=== PATIENT | female | born 1990 | race African-American/Black ===

== ENCOUNTER 2018-12-02 22:13 | Emergency (ER) | payer OTHER ==
[2018-12-02 22:27] VITALS: BP 100/80; PULSE 88; TEMP 98.2; BMI 30.2
--- NOTE | 2018-12-03 00:10 | PDOC ---
History of Present Illness - General Chief Complaint: Pain, Acute Stated Complaint: PELVIC PAIN Time Seen by Provider: 12/02/18 22:43 History Source: Patient Exam Limitations: No Limitations - History of Present Illness Travel History: No Initial Comments: 12/03/18 00:09 Best Contact: PCP:[facility] Pmhx:Asthma/No history of intubation and admissions Pshx:0 Allergies: NKDA FH:0 Social Hx: Cigarettes/ 0 Alcohol/ 0 Drugs/0 28-year-old female presents to the emergency department complaining of pelvic pain 3 days Past History - Past Medical History Allergies/Adverse Reactions: Allergies Allergy/AdvReac Type Severity Reaction Status Date / Time No Known Allergies Allergy Verified 12/03/18 02:50 Home Medications: Ambulatory Orders Albuterol Sulfate Inhaler - [Ventolin Hfa Inhaler -] 1 - 2 inh PO QID PRN Asthma: Yes - Immunization History Immunization Up to Date: Yes - Suicide/Smoking/Psychosocial Hx Smoking History: Current some day smoker Have you smoked in the past 12 months: Yes Number of Cigarettes Smoked Daily: 6 Information on smoking cessation initiated: No Hx Alcohol Use: Yes (Social) Drug/Substance Use Hx: No Substance Use Type: Alcohol Review of Systems - Review of Systems Able to Perform ROS?: Yes Comments:: 12/03/18 00:08 CONSTITUTIONAL: Absent: fever, chills, diaphoresis, generalized weakness, malaise, loss of appetite HEENT: Absent: rhinorrhea, nasal congestion, throat pain, throat swelling, difficulty swallowing, mouth swelling, ear pain, eye pain, visual Changes CARDIOVASCULAR: Absent: chest pain, loss of consciousness, palpitations, irregular heart rate, peripheral edema RESPIRATORY: Absent: cough, shortness of breath, dyspnea with exertion, orthopnea, wheezing, stridor, hemoptysis GASTROINTESTINAL: Absent: abdominal pain, abdominal distension, nausea, vomiting, diarrhea, constipation, melena, hematochezia GENITOURINARY: +Left sided pelvic pain Absent: dysuria, frequency, urgency, hesitancy, hematuria, flank pain, genital pain MUSCULOSKELETAL: Absent: myalgia, arthralgia, joint swelling SKIN: Absent: rash, itching, pallor HEMATOLOGIC/IMMUNOLOGIC: Absent: easy bleeding, easy bruising, lymphadenopathy, frequent infections ENDOCRINE: Absent: unexplained weight gain, unexplained weight loss, heat intolerance, cold intolerance NEUROLOGIC: Absent: headache, focal weakness or paresthesias, dizziness, unsteady gait, seizure, mental status changes, bladder or bowel incontinence PSYCHIATRIC: Absent: anxiety, depression, suicidal or homicidal ideation, hallucinations. 12/03/18 00:09 12/03/18 00:42 Is the patient limited Luxembourgish proficient: No *Physical Exam - Vital Signs Last Vital Signs Temp Pulse Resp BP Pulse Ox 98.2 F 88 20 100/80 100 12/02/18 22:22 12/02/18 22:22 12/02/18 22:22 12/02/18 22:22 12/02/18 22:22 - Physical Exam Comments: 12/03/18 00:08 GENERAL: Well developed, well nourished. Awake and alert. No acute distress. HEENT: Normocephalic, atraumatic. PERRLA, EOMI. No conjunctival pallor. Sclera are non- icteric. Moist mucous membranes. Oropharynx is clear. NECK: Supple. Full ROM. No JVD. Carotid pulses 2+ and symmetric, without bruits. No thyromegaly. No lymphadenopathy. CARDIOVASCULAR: Regular rate and rhythm. No murmurs, rubs, or gallops. Distal pulses are 2+ and symmetric. PULMONARY: No evidence of respiratory distress. Lungs clear to auscultation bilaterally. No wheezing, rales or rhonchi. ABDOMINAL: Soft. Non-tender. Non-distended. No rebound or guarding. No organomegaly. Normoactive bowel sounds. MUSCULOSKELETAL Normal range of motion at all joints. No bony deformities or tenderness. No CVA tenderness. EXTREMITIES: No cyanosis. No clubbing. No edema. No calf tenderness. SKIN: Warm and dry. Normal capillary refill. No rashes. No jaundice. NEUROLOGICAL: Alert, awake, appropriate. Cranial nerves 2-12 intact. No deficits to light touch and temperature in face, upper extremities and lower extremities. No motor deficits in the in face, upper extremities and lower extremities. Normoreflexic in the upper and lower extremities. Normal speech. Toes are down- going bilaterally. Gait is normal without ataxia. PSYCHIATRIC: Cooperative. Good eye contact. Appropriate mood and affect. Pelvic: External genitalia normal without lesions. Vaginal vault is clear without blood or discharge. Cervix is long and closed. No cervical motion tenderness. Uterus is nontender and normal in size. Adnexa are nontender and without masses. Moderate Sedation - Procedure Monitoring Vital Signs: Procedure Monitoring Vital Signs Temperature 98.2 F 12/02/18 22:22 Pulse Rate 88 12/02/18 22:22 Respiratory Rate 20 12/02/18 22:22 Blood Pressure 100/80 12/02/18 22:22 O2 Sat by Pulse Oximetry (%) 100 12/02/18 22:22 ED Treatment Course - LABORATORY CBC & Chemistry Diagram: 12/03/18 01:50 12/03/18 02:00 - RADIOLOGY Radiology Studies Ordered: Category Date Time Status TRANSVAGINAL ULTRASOUND US [US] Stat Ultrasound 12/02/18 23:22 Taken Radiograph Interpretation: 12/03/18 04:46 CAT scan abdomen and pelvis: Complex peritoneum fluids suggests possible hemoperitoneum. Related to a ruptured hemorrhagic ovarian cyst. *DC/Admit/Observation/Transfer Diagnosis at time of Disposition: Ovarian cyst, left - Discharge Dispostion Condition at time of disposition: Stable Decision to Admit order: No - Referrals Referrals: Delfino Malcolm MD [Staff Physician] - - Patient Instructions Printed Discharge Instructions: DI for Ovarian Cyst, DI for Pelvic Pain Additional Instructions: Follow-up with the board worker this week Increase fluids Tylenol alternating with Motrin for pain Return back to the ER for severe/persistent or worsening symptoms - Post Discharge Activity
[2018-12-03 00:54] LABS: URINE APPEARANCE SLCLOUDY; URINE BILIRUBIN NEGATIVE (<2.0 mg/dL); URINE COLOR YELLOW; URINE GLUCOSE (UA) NEGATIVE (NEGATIVE); URINE KETONE NEGATIVE (NEGATIVE); URINE LEUK ESTERASE NEGATIVE (NEGATIVE); URINE NITRITE NEGATIVE (NEGATIVE); URINE PROTEIN NEGATIVE (NEGATIVE); URINE UROBILINOGEN NEGATIVE mg/dL (0.2-1.0)
[2018-12-03 00:56] LABS: HCG,QUALITATIVE URINE Negative
[2018-12-03] MEDS ORDERED: KETOROLAC TROMETHAMINE 60 MG/2 ML VIAL IM ONE (01:05)
[2018-12-03 02:04] LABS: BASO % 0.7 % (0-2.0); EOS % 0.5 % (0-4.5); HEMATOCRIT 37.2 % (32.4-45.2); HEMOGLOBIN 12.7 GM/dL (10.7-15.3); LYMPH % 18.1 % (8-40); MCH 29.8 pg (25.7-33.7); MCHC 34.1 g/dl (32.0-36.0); MEAN CELL VOLUME 87.4 fl (80-96); MEAN PLT VOLUME 8.6 fl (7.5-11.1); MONO % 6.8 % (3.8-10.2); NEUT % 73.9 % (42.8-82.8); PLATELET COUNT 286 K/MM3 (134-434); RBC 4.26 M/mm3 (3.60-5.2); RDW 15.5 % (11.6-15.6); WHITE BLOOD COUNT 10.4 K/mm3 (4.0-10.0)
[2018-12-03] MEDS ORDERED: KETOROLAC TROMETHAMINE 60 MG/2 ML VIAL ONE (02:04)
[2018-12-03 02:49] LABS: ALBUMIN 3.8 g/dl (3.4-5.0); ALK PHOS 61 U/L (45-117); ANION GAP 6 MMOL/L (8-16); BILIRUBIN,TOTAL 0.9 mg/dL (0.2-1); BLOOD UREA NITROGEN 10 mg/dL (7-18); CALCIUM 8.2 mg/dL (8.5-10.1); CHLORIDE 105 mmol/L (98-107); CO2 25 mmol/L (21-32); CREATININE 0.7 mg/dL (0.55-1.3); GLUCOSE,RANDOM 99 mg/dL (74-106); POTASSIUM 4.2 mmol/L (3.5-5.1); SGOT/AST 16 U/L (15-37); SGPT/ALT 22 U/L (13-61); SODIUM 136 mmol/L (136-145); TOT PROT 7.2 g/dl (6.4-8.2)
== END 2018-12-03 04:50 | disposition home or self-care (01) ==
LOC: JER 22:13
PROC: 3E0233Z Introduction of Anti-inflammatory into Muscle, Percutaneous Approach (ICD-10-PCS; principal; 2018-12-02)
DX: N83.202 Unspecified ovarian cyst, left side (principal); F17.210 Nicotine dependence, cigarettes, uncomplicated; J45.909 Unspecified asthma, uncomplicated
CPT/HCPCS: 36415; 74177-TC; 76830-TC; 80053; 81003; 84703; 85025; 99282-25

== ENCOUNTER 2019-12-11 07:32 | Emergency (ER) | payer OTHER ==
[2019-12-11 07:40] VITALS: BMI 30.1
[2019-12-11] MEDS ORDERED: SODIUM CHLORIDE 1,000 ML IV STA (08:44)
[2019-12-11] MEDS ORDERED: ACETAMINOPHEN 325 MG TABLET (FP) PO ONE (08:45)
--- NOTE | 2019-12-11 09:11 | PDOC ---
History of Present Illness <Rajinder Cochran - Last Filed: 12/11/19 08:47> <Rosalba Pena - Last Filed: 12/11/19 10:46> - General Chief Complaint: Cold Symptoms Stated Complaint: FLU LIKE SYMPTOMS Time Seen by Provider: 12/11/19 08:11 Past History - Past Medical History Asthma: Yes COPD: No - Reproductive History Cervical CA: No Ectopic : No Endometrial CA: No Polycystic Ovaries: No Tubal Ligation: No - Immunization History Immunization Up to Date: Yes - Psycho Social/Smoking Cessation Hx Smoking History: Current every day smoker Have you smoked in the past 12 months: Yes Number of Cigarettes Smoked Daily: 10 Information on smoking cessation initiated: No Hx Alcohol Use: No Drug/Substance Use Hx: No Substance Use Type: Alcohol <Rajinder Cochran - Last Filed: 12/11/19 08:47> <Rosalba Pena - Last Filed: 12/11/19 10:46> - Past Medical History Allergies/Adverse Reactions: Allergies Allergy/AdvReac Type Severity Reaction Status Date / Time No Known Allergies Allergy Verified 12/11/19 07:37 Home Medications: Ambulatory Orders Albuterol Sulfate Inhaler - [Ventolin Hfa Inhaler -] 1 - 2 inh PO QID PRN *Physical Exam - Vital Signs Last Vital Signs Temp Pulse Resp BP Pulse Ox 98.6 F 70 17 113/66 100 12/11/19 07:37 12/11/19 07:37 12/11/19 07:37 12/11/19 07:37 12/11/19 07:37 <Rajinder Cochran - Last Filed: 12/11/19 08:47> - Vital Signs Last Vital Signs Temp Pulse Resp BP Pulse Ox 98.6 F 70 17 113/66 100 12/11/19 07:37 12/11/19 07:37 12/11/19 07:37 12/11/19 07:37 12/11/19 07:37 <Rosalba Pena - Last Filed: 12/11/19 10:46> ED Treatment Course - LABORATORY CBC & Chemistry Diagram: 12/11/19 09:26 12/11/19 09:12 - ADDITIONAL ORDERS Additional order review: Laboratory Results 12/11/19 09:12 Sodium 136 Potassium 4.7 Chloride 103 Carbon Dioxide 28 Anion Gap 5 L BUN 9.2 Creatinine 1.0 Est GFR (CKD-EPI)AfAm 86.94 Est GFR (CKD-EPI)NonAf 75.01 Random Glucose 91 Calcium 9.4 Total Bilirubin 1.0 AST 24 ALT 38 Alkaline Phosphatase 78 Total Protein 8.3 H Albumin 4.2 12/11/19 09:26 RBC 5.30 H MCV 88.8 MCHC 33.5 RDW 14.7 MPV 9.6 D - Medications Given in the ED: ED Medications Discontinued Medications Generic Name Dose Route Start Last Admin Trade Name Bernadine PRN Reason Stop Dose Admin Acetaminophen 650 mg 12/11/19 08:45 12/11/19 09:45 Tylenol - PO 12/11/19 08:46 650 mg ONCE ONE Administration Sodium Chloride 1,000 mls @ 1,000 mls/hr 12/11/19 08:44 12/11/19 09:44 Normal Saline - IV 12/11/19 09:43 1,000 mls/hr ASDIR STA Administration <Rosalba Pena - Last Filed: 12/11/19 10:46> Medical Decision Making - Medical Decision Making 29 y/o female PMH asthma c/o "flu like symptoms" and upon clarification she has generalized weakness, overall joint paint, chills, and a headache. Symptoms started Wednesday 08 Dec 2019. Her symptoms were gradual and escalating in onset. The generalized weakness and joint pain have been constant. The headache has been on/off, aching, holocranial, non-radiating, no neck pain, associated with pain on eye-movement, 2/10. She endorses photophobia. Her has been sick 3 days prior. 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 She has taken Advil cold/flu with no relief. She had 1 episode of non-bloody, non- mucoid diarrhea that she relates is her baseline. She denies NVF and constipation. She denies use of new foods/supplements/medicines/herbs. LMP 17 Nov 2019, 3 days, 3-4 ppd. She is an active smoker since teens, 1/2 ppd. She has never been hospitalized for her asthma and uses her albuterol pump 1x per day. She denies cough. ROS neg except as above. She denies pelvic pain. Fam hx - denies Soc hx - Social etoh (refused CAGE questionnaire), active smoker 1/2 ppd pre- contemplative state, denies recreational drug use, lives at home with and 2 kids, no pets Surg hx - denies VS: BP 102/75, HR 82, RR 19, O2 sat 99% RA, temp 99.5 GENERAL: AOx3 NAD HEAD: NCAT EYES: YASEMIN, EOMI, sclera anicteric, conjunctiva clear. No ptosis. ENT: Ears normal, nares patent, oropharynx clear without exudates, moist mucous membranes although hard to assess given lip gloss. NECK: Trachea midline, full range of motion, supple. LUNGS: CTAB , no wheezes, no crackles, no accessory muscle use. HEART: RRR, S1, S2 without murmur, rub or gallop. ABDOMEN: Soft, nontender, nondistended, normoactive bowel sounds, no guarding, no rebound, no hepatosplenomegaly, no masses. EXTREMITIES: 2+ pulses, warm, well-perfused, no edema. NEUROLOGICAL: Cranial nerves II through XII grossly intact. Normal speech, gait not observed. PSYCH: Normal mood, normal affect. SKIN: Warm, dry, normal turgor, no rashes or lesions noted A/P 29 y/o female PMH asthma c/o flu-like symptoms. # Influenza vs viral syndrome vs bacterial infection - Rapid influenza A/B test - NS 1 L bolus x1 - Acetominophen 650 mg once - Serum test # Asthma - Cont. home regimen 12/11/19 08:48 12/11/19 08:52 <Rajinder Cochran - Last Filed: 12/11/19 08:47> Discharge - Discharge Information Problems reviewed: Yes <Rajinder Cochran - Last Filed: 12/11/19 08:47> - Discharge Information Problems reviewed: Yes - Admission No <Rosalba Pena - Last Filed: 12/11/19 10:46> - Discharge Information Clinical Impression/Diagnosis: Viral syndrome Condition: Stable Disposition: HOME - Follow up/Referral Referrals: Kristy Lemons [Primary Care Provider] - - Patient Discharge Instructions - Post Discharge Activity
[2019-12-11] MEDS ORDERED: ACETAMINOPHEN 325 MG TABLET (FP) ONE (09:18)
--- NOTE | 2019-12-11 09:35 | PDOC ---
Documentation entered by [place] SCRIBE, acting as scribe for Rosalba Pena MD. Rosalba Pena MD: This documentation has been prepared by the Estefania ott Nirvannie, SCRIBE, under my direction and personally reviewed by me in its entirety. I confirm that the documentation accurately reflects all work, treatment, procedures, and medical decision making performed by me. Attending Attestation - Resident Resident Name: Rajinder Cochran - ED Attending Attestation I have performed the following: I have examined & evaluated the patient, The case was reviewed & discussed with the resident, I agree w/resident's findings & plan, Exceptions are as noted - HPI HPI: 12/11/19 09:47 The patient is a 29 year old female, with a significant past medical history of asthma, who presents to the emergency department with 4 days of progressively worsening generalized weakness, constant headache. He notes associated one episode on nonbloody diarrhea. Patient notes to have used Advil cold/flu, without relief. Patient notes her was recently sick with similar symptoms. She denies any nausea or vomiting. Allergies: NKDA Social history: Smoker, social alcohol usage. Primary Care Physician: Dr. Lemons - Physicial Exam PE: GENERAL: Awake, alert, and fully oriented, in no acute distress HEAD: No signs of trauma EYES: PERRLA, EOMI, sclera anicteric, conjunctiva clear ENT: Auricles normal inspection, hearing grossly normal, nares patent, oropharynx clear without exudates. Moist mucosa NECK: Normal ROM, supple, no lymphadenopathy, JVD, or masses LUNGS: Breath sounds equal, clear to auscultation bilaterally. No wheezes, and no crackles HEART: Regular rate and rhythm, normal S1 and S2, no murmurs, rubs or gallops ABDOMEN: Soft, nontender, normoactive bowel sounds. No guarding, no rebound. No masses EXTREMITIES: Normal range of motion, no edema. No clubbing or cyanosis. No cords, erythema, or tenderness NEUROLOGICAL: Cranial nerves II through XII grossly intact. Normal speech, normal gait. Motor and sensation intact SKIN: Warm, dry, normal turgor, no rashes or lesions noted. - Medical Decision Making Pt presents with viral URI/flu symptoms. Her partner is in the ED with similar symptoms. Will give IV hydration, stable for DC home.
[2019-12-11 09:45] LABS: HEMOGLOBIN 15.7 GM/dL (10.7-15.3); MCH 29.7 pg (25.7-33.7); MCHC 33.5 g/dl (32.0-36.0); MEAN CELL VOLUME 88.8 fl (80-96); MEAN PLT VOLUME 9.6 fl (7.5-11.1); PLATELET COUNT 258 K/MM3 (134-434); RDW 14.7 % (11.6-15.6); WHITE BLOOD COUNT 4.1 K/mm3 (4.0-10.0)
[2019-12-11 10:16] LABS: ALBUMIN 4.2 g/dl (3.4-5.0); BLOOD UREA NITROGEN 9.2 mg/dL (7-18); CALCIUM 9.4 mg/dL (8.5-10.1); POTASSIUM 4.7 mmol/L (3.5-5.1); TOT PROT 8.3 g/dl (6.4-8.2)
[2019-12-11 11:36] VITALS: BP 117/65; PULSE 76; TEMP 98.4
== END 2019-12-11 11:50 | disposition home or self-care (01) ==
LOC: JER 07:32
PROC: 3E0337Z Introduction of Electrolytic and Water Balance Substance into Peripheral Vein, Percutaneous Approach (ICD-10-PCS; principal; 2019-12-11)
DX: J06.9 Acute upper respiratory infection, unspecified (principal); B97.89 Other viral agents as the cause of diseases classified elsewhere; Z87.09 Personal history of other diseases of the respiratory system; F17.210 Nicotine dependence, cigarettes, uncomplicated
CPT/HCPCS: 36415; 80053; 85027; 87804; 96360; 99284-25; J7030

== ENCOUNTER 2021-06-12 15:28 | Inpatient (IN) | payer OTHER ==
[2021-06-12 16:50] VITALS: BMI 37.9
[2021-06-12] MEDS: DEXTROSE 5%-LACTATED RINGERS 1,000 ML IV SCH (18:25)
[2021-06-12 19:12] LABS: BASO % 0.6 % (0-2.0); EOS % 3.3 % (0-4.5); HEMOGLOBIN 12.9 GM/dL (10.7-15.3); LYMPH % 24.7 % (8-40); MCH 28.8 pg (25.7-33.7); MCHC 33.2 g/dl (32.0-36.0); MEAN CELL VOLUME 86.7 fl (80-96); MEAN PLT VOLUME 8.8 fl (7.5-11.1); MONO % 9.8 % (3.8-10.2); NEUT % 61.6 % (42.8-82.8); PLATELET COUNT 262 10^3/uL (134-434); RBC 4.49 M/mm3 (3.60-5.2); RDW 16.3 % (11.6-15.6); WHITE BLOOD COUNT 6.1 K/mm3 (4.0-10.0)
[2021-06-12 19:19] LABS: INR 1.01 (0.83-1.09); PROTHROMBIN TIME (PATIENT) 12.2 SEC (9.7-13.0)
[2021-06-12 19:22] LABS: ACTIVATED PTT 26.3 SECONDS (25.2-36.5)
[2021-06-12 19:31] LABS: CALCIUM 8.8 mg/dL (8.5-10.1)
[2021-06-12 19:32] LABS: BLOOD UREA NITROGEN 8.6 mg/dL (7-18)
[2021-06-12 19:35] LABS: CREATININE 0.6 mg/dL (0.55-1.3)
[2021-06-12] MEDS ORDERED: BUTORPHANOL TARTRATE 1 MG/ML VIAL IVPUSH PRN (21:15)
[2021-06-12] MEDS ORDERED: OXYTOCIN 30 UNITS in 0.9% NS 30 UNIT/500 ML INFUS.BAG IVPB SCH (21:15)
[2021-06-12] MEDS ORDERED: PROMETHAZINE HCL 25 MG/1 ML VIAL IVPUSH ONE (21:15)
[2021-06-13] MEDS ORDERED: OXYTOCIN 30 UNITS in 0.9% NS 30 UNIT/500 ML INFUS.BAG IVPB ONE (00:25)
[2021-06-13] MEDS ORDERED: BUTORPHANOL TARTRATE 2 MG/ML VIAL ONE (01:23)
[2021-06-13] MEDS ORDERED: PROMETHAZINE HCL 25 MG/1 ML VIAL ONE (01:23)
[2021-06-13] MEDS ORDERED: AMPICILLIN - 2 GM in SODIUM CHLORIDE 100 ML IVPB ONE (07:21)
[2021-06-13] MEDS ORDERED: AMPICILLIN SODIUM 2 GM VIAL ONE (08:37)
[2021-06-13] MEDS ORDERED: PCA PUMP NR ONE ×2 (09:56→19:16)
[2021-06-13] MEDS ORDERED: FENTANYL/BUPIVACAINE/NS/PF - PCEA - 50 ML DISP.SYRIN EP ONE ×3 (09:56→19:16)
[2021-06-13] MEDS: FENTANYL/BUPIVACAINE/NS/PF - PCEA - 50 ML DISP.SYRIN EP SCH ×2 (10:40→19:20)
[2021-06-13] MEDS ORDERED: NALOXONE HCL 0.4 MG/ML VIAL IVPUSH PRN (10:53)
[2021-06-13] MEDS ORDERED: ePHEDrine SULFATE 50 MG/1 ML AMPULE ONE (10:57)
[2021-06-13] MEDS ORDERED: AMPICILLIN SODIUM 1 GM VIAL ONE ×3 (12:28→20:26)
[2021-06-13] MEDS: AMPICILLIN - 1 GM in SODIUM CHLORIDE 100 ML IVPB SCH ×3 (12:30→20:40)
[2021-06-13] MEDS ORDERED: GENTAMICIN INJECTION 100 MG in SODIUM CHLORIDE 97.5 ML IVPB ONE (15:02)
[2021-06-13] MEDS: ACETAMINOPHEN 1000 MG/100 ML VIAL (NON FORMULARY) IVPB PRN (15:05)
[2021-06-13] MEDS ORDERED: GENTAMICIN SO4 80 MG/2 ML VIAL ONE (15:20)
[2021-06-13] MEDS: DEXTROSE 5%-LACTATED RINGERS 1,000 ML IV SCH (18:39)
[2021-06-13] MEDS ORDERED: ACETAMINOPHEN INJECTION 100 ML IVPB ONE (19:05)
[2021-06-13] MEDS ORDERED: ACETAMINOPHEN 1000 MG/100 ML VIAL (NON FORMULARY) IVPB ONE (19:07)
[2021-06-13] MEDS ORDERED: LIDOCAINE HCL 1% PRESERVATIVE FREE - 30ML VIAL ONE (21:40)
[2021-06-13] MEDS ORDERED: OXYTOCIN 20 UNITS in 0.9% NS 20 UNIT/1,000 ML INFUS.BAG IV ONE (21:40)
[2021-06-13] MEDS ORDERED: CITRIC ACID/SODIUM CITRATE 30 ML UNIT-DOSE CUP PO ONE (22:00)
[2021-06-13] MEDS ORDERED: ELECTROLYTE-148 SOLN 500 ML IV ONE (22:00)
[2021-06-13] MEDS ORDERED: LIDOCAINE HCL/EPINEPHRINE/PF 10 ML VIAL ONE (22:05)
[2021-06-13] MEDS ORDERED: ceFAZolin SODIUM 1 GM VIAL ONE (22:11)
[2021-06-13] MEDS ORDERED: morphine SULFATE/PF 0.5 MG/ML (2cc Syringe - QUVA) ONE ×4 (22:27)
[2021-06-13] MEDS ORDERED: OXYTOCIN 10 UNITS/ML VIAL ONE (22:29)
[2021-06-13] MEDS ORDERED: ELECTROLYTE-148 SOLN 1,000 ML IV SCH (22:30)
[2021-06-13] MEDS ORDERED: MEPERIDINE HCL 50 MG/ML VIAL ONE (22:36)
[2021-06-13 23:16] LABS: CORD BASE EXCESS -3.7 mmol/L (0-2); CORD pH 7.299 (7.14-7.44)
[2021-06-13] MEDS ORDERED: ONDANSETRON 4 MG/2 ML VIAL IVPUSH PRN (23:22)
[2021-06-13 23:25] LABS: CORD HCO3 23.8 mmHg (20-29); CORD pH 7.182 (7.14-7.44)
[2021-06-13] MEDS ORDERED: METHYLERGONOVINE MALEATE 0.2 MG/1 ML AMP IM PRN (23:38)
[2021-06-13] MEDS ORDERED: BENZOCAINE 28 GM HEMORRHOIDAL OINTMENT RC PRN (23:38)
[2021-06-13] MEDS ORDERED: oxyCODONE HCL 5 MG TABLET PO PRN (23:38)
[2021-06-13] MEDS ORDERED: BENZOCAINE 20% 57 GM BOTTLE TP PRN (23:38)
[2021-06-13] MEDS ORDERED: IBUPROFEN 800 MG/8 ML IJ IVPB PRN (23:38)
[2021-06-13] MEDS ORDERED: diphenhydrAMINE HCL 25 MG CAPSULE (FP) PO PRN (23:38)
[2021-06-13] MEDS ORDERED: WITCH HAZEL 50% (TUCKS) 40 PAD/JAR PAD TP PRN (23:38)
[2021-06-13] MEDS ORDERED: OXYTOCIN 20 UNITS in 0.9% NS 20 UNIT/1,000 ML INFUS.BAG IV SCH (23:45)
[2021-06-13] MEDS ORDERED: DEXTROSE 5%-LACTATED RINGERS 1,000 ML IV SCH (23:45)
[2021-06-14] MEDS: CLINDAMYCIN 900 MG PREMIX IVPB 900 MG/50 ML BAG IVPB SCH ×5 (01:31→21:33)
[2021-06-14] MEDS: AMPICILLIN - 1 GM in SODIUM CHLORIDE 100 ML IVPB SCH (01:32)
[2021-06-14] MEDS ORDERED: IBUPROFEN 800 MG/8 ML IJ IVPB ONE (01:34)
[2021-06-14] MEDS ORDERED: OXYTOCIN 20 UNITS in 0.9% NS 20 UNIT/1,000 ML INFUS.BAG IV ONE (01:55)
[2021-06-14] MEDS: CEFAZOLIN 1 GM/D5W 1 GM/50 ML BAG IVPB SCH ×2 (02:27→09:22)
[2021-06-14] MEDS: ACETAMINOPHEN 1000 MG/100 ML VIAL (NON FORMULARY) IVPB PRN ×2 (06:32→14:00)
[2021-06-14] MEDS: IBUPROFEN 600 MG TABLET (FP) PO PRN ×2 (11:00→21:33)
[2021-06-14 12:57] LABS: BASO % 0.3 % (0-2.0); EOS % 0.7 % (0-4.5); HEMATOCRIT 31.6 % (32.4-45.2); HEMOGLOBIN 10.5 GM/dL (10.7-15.3); MCH 28.9 pg (25.7-33.7); MCHC 33.3 g/dl (32.0-36.0); MEAN CELL VOLUME 86.7 fl (80-96); MEAN PLT VOLUME 8.3 fl (7.5-11.1); MONO % 11.2 % (3.8-10.2); NEUT % 80.8 % (42.8-82.8); PLATELET COUNT 224 10^3/uL (134-434); RBC 3.64 M/mm3 (3.60-5.2); RDW 16.8 % (11.6-15.6); WHITE BLOOD COUNT 15.5 K/mm3 (4.0-10.0)
[2021-06-14 14:49] LABS: HIV INTERPRETATION NEGATIVE (NEGATIVE)
[2021-06-14] MEDS: SIMETHICONE 80 MG TAB.CHEW (FP) PO PRN (21:33)
[2021-06-14] MEDS ORDERED: BISACODYL 10 MG SUPP.RECT PR PRN (23:39)
[2021-06-15] MEDS: oxyCODONE HCL 5 MG TABLET PO PRN ×2 (02:34→14:17)
[2021-06-15] MEDS: IBUPROFEN 600 MG TABLET (FP) PO PRN ×2 (02:35→21:33)
[2021-06-15] MEDS: SIMETHICONE 80 MG TAB.CHEW (FP) PO PRN ×3 (02:35→14:17)
[2021-06-15] MEDS: CLINDAMYCIN 900 MG PREMIX IVPB 900 MG/50 ML BAG IVPB SCH (03:49)
[2021-06-15] MEDS ORDERED: ACETAMINOPHEN 325 MG TABLET (FP) PO PRN (09:26)
[2021-06-15] MEDS: ENOXAPARIN NA (PORCINE) 40 MG/0.4 ML DISP.SYRIN SQ SCH (10:04)
[2021-06-15] MEDS: ACETAMINOPHEN 325 MG TABLET (FP) PO PRN ×2 (10:05→22:35)
[2021-06-15] MEDS ORDERED: SENNOSIDES/DOCUSATE COMBO (SENNA PLUS) TABLET (UD) PO PRN (22:00)
[2021-06-16] MEDS: SIMETHICONE 80 MG TAB.CHEW (FP) PO PRN (02:25)
[2021-06-16] MEDS: ACETAMINOPHEN 325 MG TABLET (FP) PO PRN (02:25)
[2021-06-16] MEDS: IBUPROFEN 600 MG TABLET (FP) PO PRN ×3 (02:26→14:24)
[2021-06-16] MEDS: FENTANYL/BUPIVACAINE/NS/PF - PCEA - 50 ML DISP.SYRIN EP SCH (07:51)
[2021-06-16] MEDS: CLINDAMYCIN 900 MG PREMIX IVPB 900 MG/50 ML BAG IVPB SCH (07:51)
[2021-06-16 09:39] LABS: BASO % 0.5 % (0-2.0); EOS % 2.1 % (0-4.5); HEMATOCRIT 29.6 % (32.4-45.2); HEMOGLOBIN 9.9 GM/dL (10.7-15.3); LYMPH % 13.9 % (8-40); MCH 29.2 pg (25.7-33.7); MCHC 33.5 g/dl (32.0-36.0); MEAN PLT VOLUME 8.8 fl (7.5-11.1); MONO % 8.7 % (3.8-10.2); NEUT % 74.8 % (42.8-82.8); PLATELET COUNT 303 10^3/uL (134-434); RDW 16.9 % (11.6-15.6); WHITE BLOOD COUNT 11.2 K/mm3 (4.0-10.0)
[2021-06-16 09:56] VITALS: BP 113/75; PULSE 107; TEMP 97.9
[2021-06-16] MEDS: ENOXAPARIN NA (PORCINE) 40 MG/0.4 ML DISP.SYRIN SQ SCH (10:26)
== END 2021-06-16 16:20 | disposition home or self-care (01) | DRG 540 ==
LOC: MERGE 15:28 → JLDR 15:28 → J3W 06-14 02:42
PROVIDERS: ADMIT Obstetrics & Gynecology; ATTEND Obstetrics & Gynecology
PROC: 10D00Z1 Extraction of Products of Conception, Low, Open Approach (ICD-10-PCS; principal; 2021-06-13)
DX: O42.02 Full-term premature rupture of membranes, onset of labor within 24 hours of rupture (principal); O41.1230 Chorioamnionitis, third trimester, not applicable or unspecified; O76 Abnormality in fetal heart rate and rhythm complicating labor and delivery; O32.4XX0 Maternal care for high head at term, not applicable or unspecified; O69.81X0 Labor and delivery complicated by cord around neck, without compression, not applicable or unspecified; Z37.0 Single live birth; Z3A.39 39 weeks gestation of pregnancy
CPT/HCPCS: 36415; 36600; 80048; 82803; 85025; 85610; 85730; 86780; 86850; 86900; 86901; 87070; 87205; 87340; 87389; 87522; 88307-TC; C9803; J0131; J2175; U0003; U0005

== ENCOUNTER 2025-01-25 16:05 | Inpatient (IN) | payer OTHER ==
[2025-01-25 18:11] VITALS: BMI 39.4
[2025-01-25] MEDS: ELECTROLYTE-148 SOLN 1,000 ML IV SCH (18:36)
[2025-01-25 19:08] LABS: ABSOLUTE IMMATURE GRANULOCYTES 0.03 x10^3/uL (0.0-0.031); BASOPHILS # 0.05 x10^3/uL (0.01-0.08); EOSINOPHIL % 2.8 % (0.7-5.8); HEMATOCRIT 36.9 % (34.1-44.9); MCHC 29.8 g/dl (32.2-35.5); MEAN CELL VOLUME 81.8 fl (79.4-94.8); MEAN PLT VOLUME 10.9 fl (9.4-12.3); MONOCYTE # 0.85 x10^3/uL (0.24-0.86); MONOCYTE % 11.8 % (4.7-12.5); PLATELET COUNT 297 x10^3/uL (182-369); RDW 19.5 % (12.1-16.8)
[2025-01-25 19:22] LABS: INR 1.04 (0.83-1.09); PROTHROMBIN TIME (PATIENT) 11.3 SEC (9.7-13.0)
[2025-01-25 19:25] LABS: ACTIVATED PTT 27.1 SECONDS (25.2-36.5)
[2025-01-25 19:30] LABS: POTASSIUM 4.1 mmol/L (3.5-5.1)
[2025-01-25 19:32] LABS: BLOOD UREA NITROGEN 9.2 mg/dL (7-18)
[2025-01-25 19:35] LABS: CREATININE 0.6 mg/dL (0.55-1.3)
[2025-01-26] MEDS ORDERED: AMPICILLIN SODIUM 2 GM VIAL ONE (08:03)
[2025-01-26] MEDS: AMPICILLIN - 2 GM in SODIUM CHLORIDE 100 ML IVPB ONE (08:05)
[2025-01-26] MEDS ORDERED: FENTANYL/BUPIVACAINE/NS/PF - PCEA - 50 ML DISP.SYRIN EP ONE ×2 (09:37→13:40)
[2025-01-26] MEDS: FENTANYL/BUPIVACAINE/NS/PF - PCEA - 50 ML DISP.SYRIN EP SCH (09:50)
[2025-01-26] MEDS ORDERED: NALOXONE HCL 0.4 MG/ML VIAL IVPUSH PRN (09:58)
[2025-01-26] MEDS ORDERED: OXYTOCIN 30 UNITS in 0.9% NS 30 UNIT/500 ML INFUS.BAG IVPB ONE (10:03)
[2025-01-26] MEDS: OXYTOCIN 30 UNITS in 0.9% NS 30 UNIT/500 ML INFUS.BAG IVPB SCH (10:05)
[2025-01-26] MEDS ORDERED: AMPICILLIN SODIUM 1 GM VIAL ONE (11:44)
[2025-01-26] MEDS: AMPICILLIN - 1 GM in SODIUM CHLORIDE 100 ML IVPB SCH (11:55)
[2025-01-26 12:28] LABS: POC NITRAZINE POS
[2025-01-26] MEDS: CITRIC ACID/SODIUM CITRATE 30 ML UNIT-DOSE CUP PO ONE (16:00)
[2025-01-26] MEDS ORDERED: ONDANSETRON 4 MG/2 ML VIAL ONE (16:23)
[2025-01-26] MEDS ORDERED: KETOROLAC TROMETHAMINE 30 MG/1 ML VIAL ONE (16:23)
[2025-01-26] MEDS ORDERED: PHENYLEPHRINE HCL 10 MG/1 ML SINGLE DOSE VIAL ONE (16:23)
[2025-01-26] MEDS ORDERED: ceFAZolin SODIUM 1 GM VIAL ONE (16:41)
[2025-01-26] MEDS ORDERED: OXYTOCIN 10 UNITS/ML VIAL ONE (16:59)
[2025-01-26] MEDS ORDERED: METHYLERGONOVINE MALEATE 0.2 MG/1 ML AMP IM PRN (17:39)
[2025-01-26] MEDS ORDERED: ACETAMINOPHEN 325 MG TABLET (FP) PO PRN (17:39)
[2025-01-26 17:59] LABS: CORD PCO2 50.8 mmHg (30-78); CORD pH 7.292 (7.14-7.44)
[2025-01-26 18:02] LABS: CORD HCO3 22.7 mmHg (20-29); CORD PCO2 55.3 mmHg (30-78); CORD pH 7.231 (7.14-7.44)
[2025-01-26] MEDS ORDERED: OXYTOCIN 20 UNITS in 0.9% NS 20 UNIT/1,000 ML INFUS.BAG IV ONE (18:04)
[2025-01-26] MEDS: OXYTOCIN 20 UNITS in 0.9% NS 20 UNIT/1,000 ML INFUS.BAG IV SCH (19:00)
[2025-01-26] MEDS ORDERED: IBUPROFEN (CALDOLOR) 800 MG/200 ML PREMIX BAGS IVPB ONE (19:29)
[2025-01-26] MEDS: IBUPROFEN 800 MG/8 ML IJ IVPB PRN (19:30)
[2025-01-26 20:59] VITALS: RESP 18
[2025-01-26] MEDS: ACETAMINOPHEN 1000 MG/100 ML BAG IVPB PRN (22:56)
[2025-01-27] MEDS: CEFAZOLIN SODIUM 2 GM in DEXTROSE 5%-WATER 100 ML IVPB SCH (01:07)
[2025-01-27 07:22] LABS: ABSOLUTE IMMATURE GRANULOCYTES 0.05 x10^3/uL (0.0-0.031); BASOPHILS # 0.03 x10^3/uL (0.01-0.08); EOSINOPHIL % 0.8 % (0.7-5.8); EOSINOPHILS # 0.08 x10^3/uL (0.04-0.36); HEMATOCRIT 33.3 % (34.1-44.9); HEMOGLOBIN 10.1 g/dL (11.2-15.7); MCHC 30.3 g/dl (32.2-35.5); MEAN PLT VOLUME 10.9 fl (9.4-12.3); MONOCYTE # 1.02 x10^3/uL (0.24-0.86); MONOCYTE % 10.4 % (4.7-12.5); PLATELET COUNT 249 x10^3/uL (182-369); RDW 19.8 % (12.1-16.8)
[2025-01-27] MEDS: ENOXAPARIN NA (PORCINE) 40 MG/0.4 ML DISP.SYRIN SQ SCH (10:59)
[2025-01-27] MEDS: oxyCODONE HCL 5 MG TABLET PO PRN ×2 (16:21→21:28)
[2025-01-27] MEDS: SIMETHICONE 80 MG TAB.CHEW (FP) PO PRN (16:23)
[2025-01-27] MEDS: IBUPROFEN 600 MG TABLET (FP) PO PRN (19:21)
[2025-01-28] MEDS: SENNOSIDES/DOCUSATE COMBO (SENNA PLUS) TABLET (UD) PO PRN (20:29)
[2025-01-28] MEDS: BISACODYL 10 MG SUPP.RECT RC PRN (23:20)
[2025-01-29 07:07] LABS: ABSOLUTE IMMATURE GRANULOCYTES 0.04 x10^3/uL (0.0-0.031); BASOPHILS # 0.03 x10^3/uL (0.01-0.08); EOSINOPHIL % 2.6 % (0.7-5.8); EOSINOPHILS # 0.25 x10^3/uL (0.04-0.36); HEMATOCRIT 31.1 % (34.1-44.9); HEMOGLOBIN 9.3 g/dL (11.2-15.7); MCHC 29.9 g/dl (32.2-35.5); MEAN CELL VOLUME 81.6 fl (79.4-94.8); MEAN PLT VOLUME 9.7 fl (9.4-12.3); MONOCYTE # 0.79 x10^3/uL (0.24-0.86); MONOCYTE % 8.2 % (4.7-12.5); PLATELET COUNT 288 x10^3/uL (182-369)
[2025-01-30 10:54] VITALS: BP 127/84; PULSE 94; TEMP 98.2
== END 2025-01-30 15:50 | disposition home or self-care (01) | DRG 560 ==
LOC: JDEL 16:05 → JLDR 17:39 → J3W 01-26 21:35
PROVIDERS: ADMIT Obstetrics & Gynecology; ATTEND Obstetrics & Gynecology
DX: O34.211 Maternal care for low transverse scar from previous cesarean delivery (principal); O42.92 Full-term premature rupture of membranes, unspecified as to length of time between rupture and onset of labor; Z3A.38 38 weeks gestation of pregnancy; Z37.0 Single live birth
CPT/HCPCS: 36415; 36600; 59409; 80048; 82803; 83986-QW; 85025; 85610; 85730; 86780; 86850; 86900; 86901; 88307-TC; J0131